=== PATIENT | female | born 1950 | race Caucasian/White ===

== ENCOUNTER → 2020-06-06 | Outpatient (CLI) | payer MEDICARE ==
[~2020-06-06] MED LIST: OMNIPAQUE 350 MG/ML, 75ML BOTTLE ONE
== END | disposition home or self-care (01) ==
LOC: CFH 09:09
PROVIDERS: ATTEND Internal Medicine
DX: M96.843 Postprocedural seroma of a musculoskeletal structure following other procedure (principal); Z85.3 Personal history of malignant neoplasm of breast; Z98.83 Filtering (vitreous) bleb after glaucoma surgery status; Z98.82 Breast implant status
CPT/HCPCS: 71260; 82565; Q9967

== ENCOUNTER → 2020-06-28 | Outpatient (CLI) | payer MEDICARE | END | disposition home or self-care (01) | LOC: PETCFH 12:43 | PROVIDERS: ATTEND Internal Medicine | DX: C50.919 Malignant neoplasm of unspecified site of unspecified female breast (principal); M54.9 Dorsalgia, unspecified; T79.2XXS Traumatic secondary and recurrent hemorrhage and seroma, sequela; G95.89 Other specified diseases of spinal cord; M25.78 Osteophyte, vertebrae; X58.XXXS Exposure to other specified factors, sequela; Z98.82 Breast implant status; Z85.3 Personal history of malignant neoplasm of breast | CPT/HCPCS: 78815; A9552 ==